=== PATIENT | male | born 1995 | race African-American/Black ===

== ENCOUNTER 2017-08-29 08:22 | Emergency (ER) | payer SELFPAY ==
[2017-08-29] MEDS ORDERED: KETOROLAC 30 MG/ML INJ ONE (08:57)
--- NOTE | 2017-08-29 09:10 | EKG ---
Test Date: 2017-08-29 Test Time: 08:51:33 Transportation Supervisor: MODE MEASUREMENT RESULTS: Intervals: Rate: 65 CO: 166 QRSD: 76 QT: 366 QTc: 380 [place]: P: 62 CO: 166 QRS: 54 T: 27 INTERPRETIVE STATEMENTS: Normal sinus rhythm with sinus arrhythmia Normal ECG No previous ECG available for comparison Electronically Signed On 08-29-17 09:10:10 CDT by Jerzy Franks
[2017-08-29 09:12] LABS: Absolute Lymphocytes (CBC) 2.4 K/uL (0.7-4.9); Absolute Monocytes 0.5 K/uL (0.1-1.3); Basophils % 0.6 % (0-1.3); Eosinophils % 3.2 % (0-4.4); Hematocrit 45.8 % (39.6-49.0); Lymphocytes % 29.4 % (15.3-44.8); MCH 30.5 pg (27.0-35.0); MCV 89.8 fL (80-100); MPV 9.3 fL (7.6-11.3); Monocytes % 5.8 % (3.3-12.3)
[2017-08-29 09:31] LABS: Bicarbonate 26 mEq/L (21-31); Glucose Level 98 mg/dL (65-120); Potassium 3.9 mEq/L (3.6-5.0); Sodium Level 138 mEq/L (135-145)
[2017-08-29 09:33] LABS: Alcohol Serum/Plasma < 10 mg/dl; BUN Blood Urea Nitrogen 16 mg/dL (6-20)
[2017-08-29 10:05] LABS: Urine Blood NEGATIVE (NEG); Urine Glucose NEGATIVE (NEG); Urine Protein NEGATIVE (NEG)
[2017-08-29 10:19] LABS: Barbiturates NEGATIVE (NEGATIVE); Benzodiazepines NEGATIVE (NEGATIVE); Cocaine NEGATIVE (NEGATIVE); METHAMPHETAM NEGATIVE (NEGATIVE); Opiates NEGATIVE (NEGATIVE); Phencyclidine NEGATIVE (NEGATIVE); THC Cannibis POSITIVE (NEGATIVE)
--- NOTE | 2017-08-29 10:22 | RAD REPORT ---
EXAM DESCRIPTION: RAD - Chest Single View - 08/29/2017 9:04 am CLINICAL HISTORY: Chest pain. COMPARISON: None. FINDINGS: Portable technique limits examination quality. The lungs are grossly clear. The heart is normal in size. No displaced fractures. IMPRESSION: No acute intrathoracic process suspected.
--- NOTE | 2017-08-29 10:28 | EDPHYS ---
Physician Documentation [facility] Name: Angel Davison Age: 22 yrs Sex: Male : 1995 Arrival Date: 08/29/2017 Time: 08:25 Bed 5 Private MD: None, None ED Physician Campbell Barker HPI: 08/29 09:23 This 22 yrs old Black Male presents to ER via Ambulatory with complaints of Chest Pain. kdr 09:23 The patient or guardian reports chest pain that is located primarily in the anterior kdr chest wall, right. The pain does not radiate. Associated signs and symptoms: The patient has no apparent associated signs or symptoms. The chest pain is described as aching, a pressure, sharp. Duration: The patient or guardian reports a single episode, that is still ongoing, but improving. Severity of pain: At its worst the pain was moderate in the emergency department the pain is unchanged. The patient has not experienced similar symptoms in the past. The patient has not recently seen a physician. Historical: - Allergies: 08:39 NKA; iw - Home Meds: 08:39 None [Active]; iw - PMHx: 08:39 None; iw - PSHx: 08:39 None; iw - Immunization history:: Adult Immunizations unknown. - Social history:: Smoking status: Patient/guardian denies using tobacco, Patient/guardian denies using alcohol. - Ebola Screening: : Patient negative for fever greater than or equal to 101.5 degrees Fahrenheit, and additional compatible Ebola Virus Disease symptoms Patient denies exposure to infectious person Patient denies travel to an Ebola-affected area in the 21 days before illness onset. ROS: 09:23 Constitutional: Negative for fever, chills, and weight loss, Eyes: Negative for injury, kdr pain, redness, and discharge, ENT: Negative for injury, pain, and discharge, Neck: Negative for injury, pain, and swelling, Respiratory: Negative for shortness of breath, cough, wheezing, and pleuritic chest pain, Abdomen/GI: Negative for abdominal pain, nausea, vomiting, diarrhea, and constipation, Back: Negative for injury and pain, : Negative for injury, bleeding, discharge, and swelling, MS/Extremity: Negative for injury and deformity, Skin: Negative for injury, rash, and discoloration, Neuro: Negative for headache, weakness, numbness, tingling, and seizure activity. Psych: Negative for depression, anxiety, suicide ideation, homicidal ideation, and hallucinations, Allergy/Immunology: Negative for hives, rash, and allergies, Endocrine: Negative for neck swelling, polydipsia, polyuria, polyphagia, and marked weight changes, Hematologic/Lymphatic: Negative for swollen nodes, abnormal bleeding, and unusual bruising. 09:23 Cardiovascular: Positive for chest pain, Negative for edema, orthopnea, palpitations, paroxysmal nocturnal dyspnea. Exam: 09:25 Constitutional: This is a well developed, well nourished patient who is awake, alert, kdr and in no acute distress. Head/Face: Normocephalic, atraumatic. Eyes: Pupils equal round and reactive to light, extra-ocular motions intact. Lids and lashes normal. Conjunctiva and sclera are non-icteric and not injected. Cornea within normal limits. Periorbital areas with no swelling, redness, or edema. Neck: Trachea midline, no thyromegaly or masses palpated, and no cervical lymphadenopathy. Supple, full range of motion without nuchal rigidity, or vertebral point tenderness. No Meningismus. Chest/axilla: Normal chest wall appearance and motion. Nontender with no deformity. No lesions are appreciated. Cardiovascular: Regular rate and rhythm with a normal S1 and S2. No gallops, murmurs, or rubs. Normal PMI, no JVD. No pulse deficits. Respiratory: Lungs have equal breath sounds bilaterally, clear to auscultation and percussion. No rales, rhonchi or wheezes noted. No increased work of breathing, no retractions or nasal flaring. Abdomen/GI: Soft, non-tender, with normal bowel sounds. No distension or tympany. No guarding or rebound. No evidence of tenderness throughout. Back: No spinal tenderness. No costovertebral tenderness. Full range of motion. Skin: Warm, dry with normal turgor. Normal color with no rashes, no lesions, and no evidence of cellulitis. MS/ Extremity: Pulses equal, no cyanosis. Neurovascular intact. Full, normal range of motion. Neuro: Awake and alert, GCS 15, oriented to person, place, time, and situation. Cranial nerves II-XII grossly intact. Motor strength 5/5 in all extremities. Sensory grossly intact. Cerebellar exam normal. Normal gait. Psych: Awake, alert, with orientation to person, place and time. Behavior, mood, and affect are within normal limits. Vital Signs: 08:34 BP 141 / 81; Pulse 73; Resp 18; Temp 98.1(TE); Pulse Ox 97% on R/A; Weight 72.57 kg; hj Height 5 ft. 2 in. (157.48 cm); Pain 7/10; 09:30 BP 142 / 80; Pulse 75; Resp 18; Pulse Ox 100% on R/A; hj 10:42 BP 119 / 78; Pulse 74; Resp 18; Pulse Ox 100% on R/A; hj 08:34 Body Mass Index 29.26 (72.57 kg, 157.48 cm) hj MDM: 09:25 HEART Score: History: Slightly Suspicious (0), ECG: Normal (0), Age: < or = 45 years kdr (0), Risk Factors: No Risk Factors Known (0), Troponin: < or = 1 x Normal Limit (0), Total Score =. DAVIDSON Risk Score: TOTAL SCORE = 1. Data reviewed: vital signs, nurses notes, EMS record. Counseling: I had a detailed discussion with the patient and/or guardian regarding: the historical points, exam findings, and any diagnostic results supporting the discharge/admit diagnosis, lab results, radiology results. Special discussion: Based on the patient's history, exam, and Dx evaluation, there is no indication for emergent intervention or inpatient Tx. It is understood by the patient/guardian that if the Sx's persist or worsen they need to return immediately for re-evaluation. 10:27 Patient medically screened. [facility] 08/29 08:51 Order name: CBC with Diff; Complete Time: 10:25 kdr 08/29 08:51 Order name: Chem 7; Complete Time: 10:25 kdr 08/29 08:51 Order name: CXR XRAY; Complete Time: 10:25 kdr 08/29 08:51 Order name: UDS kdr 08/29 08:51 Order name: ETOH Level; Complete Time: 10:25 kdr 08/29 09:25 Order name: Urine Dipstick--Ancillary (enter results); Complete Time: 10:25 bd 08/29 08:43 Order name: EKG; Complete Time: 08:43 Administered Medications: 08:54 Drug: TORadol 30 mg Route: IVP; Site: left antecubital; hj 08:57 Follow up: Response: No adverse reaction; Pain is decreased hj Disposition: 08/29/17 10:27 Discharged to Home. Impression: Chest pain, unspecified. - Condition is Stable. - Discharge Instructions: Chest Wall Pain, Nonspecific Chest Pain, [id number]. - Prescriptions for Ibuprofen 600 mg Oral Tablet - take 1 tablet by ORAL route every 6 hours As needed take with food; 15 tablet. Cyclobenzaprine 10 mg Oral Tablet - take 1 tablet by ORAL route every 8 hours As needed; 12 tablet. - Medication Reconciliation Form, Thank You Letter form. - Follow up: Private Physician; When: 2 - 3 days; Reason: If symptoms return, Further diagnostic work-up, Recheck today's complaints, Continuance of care, Re-evaluation by your physician. - Problem is new. - Symptoms have improved. Signatures: Dispatcher [employer] EDMS Campbell Barker MD MD [facility] Ashtyn Mcdermott RN RN Iraj Gonzalez RN RN Corrections: (The following items were deleted from the chart) 10:44 10:27 08/29/2017 10:27 Discharged to Home. Impression: Chest pain, unspecified. hj Condition is Stable. Forms are Medication Reconciliation Form, Thank You Letter, Antibiotic Education, Prescription Opioid Use. Follow up: Private Physician; When: 2 - 3 days; Reason: If symptoms return, Further diagnostic work-up, Recheck today's complaints, Continuance of care, Re-evaluation by your physician. Problem is new. Symptoms have improved. kdr
--- NOTE | 2017-08-29 10:28 | ER ---
Nurse's Notes [facility] Name: Angel Davison Age: 22 yrs Sex: Male : 1995 Arrival Date: 08/29/2017 Time: 08:25 Bed 5 Private MD: None, None Diagnosis: Chest pain, unspecified Presentation: 08/29 08:34 Presenting complaint: Patient states: woke up this morning with anterior chest wall iw pain, non radiating, denies injury, denies cough or SOB, /10. Transition of care: patient was not received from another setting of care. Onset of symptoms was August 29, 2017. 08:34 Method Of Arrival: Ambulatory iw 08:34 Acuity: AUDRA 3 iw 08:36 Risk Assessment: Do you want to hurt yourself or someone else? Patient reports no hj desire to harm self or others. Initial Sepsis Screen: Does the patient meet any 2 criteria? No. Patient's initial sepsis screen is negative. Does the patient have a suspected source of infection? No. Patient's initial sepsis screen is negative. Care prior to arrival: None. 08:37 Transition of care: patient was not received from another setting of care. hj Triage Assessment: 08:35 General: Appears in no apparent distress. uncomfortable, Behavior is calm, cooperative, hj appropriate for age. Pain: Complains of pain in chest. Cardiovascular: Capillary refill < 3 seconds Patient's skin is warm and dry. Historical: - Allergies: 08:39 NKA; iw - Home Meds: 08:39 None [Active]; iw - PMHx: 08:39 None; iw - PSHx: 08:39 None; iw - Immunization history:: Adult Immunizations unknown. - Social history:: Smoking status: Patient/guardian denies using tobacco, Patient/guardian denies using alcohol. - Ebola Screening: : Patient negative for fever greater than or equal to 101.5 degrees Fahrenheit, and additional compatible Ebola Virus Disease symptoms Patient denies exposure to infectious person Patient denies travel to an Ebola-affected area in the 21 days before illness onset. Screenin:35 Abuse screen: Denies threats or abuse. Denies injuries from another. Nutritional hj screening: No deficits noted. Tuberculosis screening: No symptoms or risk factors identified. Fall Risk None identified. Assessment: 08:34 Pain: Pain does not radiate. Pain began. hj 08:34 General: Appears in no apparent distress. uncomfortable, Behavior is calm, cooperative, hj appropriate for age. Neuro: Level of Consciousness is awake, alert, obeys commands, Oriented to person, place, time, situation, Appropriate for age. Cardiovascular: Capillary refill < 3 seconds Patient's skin is warm and dry. Cardiovascular: Heart tones S1 S2 present Pulses are all present. Rhythm is regular Chest pain is described as mild. Respiratory: Airway is patent Respiratory effort is even, unlabored, Respiratory pattern is regular, symmetrical. GI: No signs and/or symptoms were reported involving the gastrointestinal system. : No signs and/or symptoms were reported regarding the genitourinary system. EENT: No signs and/or symptoms were reported regarding the EENT system. Derm: No signs and/or symptoms reported regarding the dermatologic system. Musculoskeletal: No signs and/or symptoms reported regarding the musculoskeletal system. 09:11 Reassessment: Patient and/or family updated on plan of care and expected duration. Pain hj level reassessed. Patient is alert, oriented x 3, equal unlabored respirations, skin warm/dry/pink. awaiting results; medicated with pain meds with relief;. Vital Signs: 08:34 BP 141 / 81; Pulse 73; Resp 18; Temp 98.1(TE); Pulse Ox 97% on R/A; Weight 72.57 kg; hj Height 5 ft. 2 in. (157.48 cm); Pain 7/10; 09:30 BP 142 / 80; Pulse 75; Resp 18; Pulse Ox 100% on R/A; hj 10:42 BP 119 / 78; Pulse 74; Resp 18; Pulse Ox 100% on R/A; hj 08:34 Body Mass Index 29.26 (72.57 kg, 157.48 cm) ED Course: 08:25 Patient arrived in ED. mr 08:25 None, None is Private Physician. mr 08:30 Iraj Gonzalez, SIDNEY is Primary Nurse. hj 08:30 Campbell Barker MD is Attending Physician. kdr 08:35 Arm band placed on left wrist. hj 08:36 Patient has correct armband on for positive identification. Placed in gown. Bed in low hj position. Call light in reach. Side rails up X 1. [facility] shift lead on. 08:37 Patient maintains SpO2 saturation greater than 95% on room air. hj 08:38 Triage completed. iw 08:47 Missed attempt(s): 20 gauge in right antecubital area. Bleeding controlled, band aid ks6 applied, catheter tip intact. 08:48 Initial lab(s) drawn, by me, held in ED. Inserted saline lock: 20 gauge in left ks6 antecubital area, using aseptic technique. Blood collected. 09:01 X-ray completed. Portable x-ray completed in exam room. Patient tolerated procedure kp1 well. 09:03 CXR XRAY In Process Unspecified. EDMS 09:15 EKG done, by pharmacy technician trainee. reviewed by Campbell Barker MD. at1 09:25 Urine collected: clean catch specimen, clear. dh3 10:41 No provider procedures requiring assistance completed. IV discontinued, intact, hj bleeding controlled, No redness/swelling at site. Pressure dressing applied. Administered Medications: 08:54 Drug: TORadol 30 mg Route: IVP; Site: left antecubital; hj 08:57 Follow up: Response: No adverse reaction; Pain is decreased hj Outcome: 10:27 Discharge ordered by . kdr 10:41 Discharged to home ambulatory, with family. hj 10:41 Condition: stable 10:41 Discharge instructions given to patient, family, Instructed on discharge instructions, follow up and referral plans. medication usage, Demonstrated understanding of instructions, follow-up care, medications, Prescriptions given X 2. 10:44 Patient left the ED. hj Signatures: Dispatcher [employer] EDMS Campbell Barker MD MD kdr Rivera, Maria mr Williams, Irene, RN RN iw Cecilia sal, wall taper EKG Tat1 Iraj Gonzalez, Chloe Holloway RN kp1 Rosa Aguilar 3 Emmett Lou ks6
== END 2017-08-29 10:44 | disposition home or self-care (01) ==
LOC: ER 08:22
DX: R07.9 Chest pain, unspecified (principal)
CPT/HCPCS: 36415; 71045; 80048; 80307; 80320; 81003; 85025; 93005; 96374; 99285

== ENCOUNTER 2017-10-09 00:54 | Emergency (ER) | payer SELFPAY ==
[2017-10-09] MEDS ORDERED: NA CHLORIDE 0.9% 1,000 ML ONE ×2 (01:17→01:57)
--- NOTE | 2017-10-09 03:10 | ER ---
Nurse's Notes [facility] Name: Angel Davison Age: 22 yrs Sex: Male : 1995 Arrival Date: 10/09/2017 Time: 01:04 Bed 3 Private MD: Diagnosis: Alcohol abuse with intoxication;Cannabis abuse with intoxication Presentation: 10/09 01:05 Presenting complaint: EMS states: pt was found unresponsive in the [facility] and another resident called 911. Upon EMS arrival pt appeared intoxicated and became combative. Pt states he [place] the beach earlier and drank some liquor and smoked what he thought was marijuana but he then found out it was synthetic marijuana. Upon arrival to ED pt continually repeating, "Who gave me legal? I don't smoke legal.". Transition of care: patient was not received from another setting of care. Onset of symptoms was October 09, 2017. Risk Assessment: Do you want to hurt yourself or someone else? Patient reports no desire to harm self or others. Initial Sepsis Screen: Does the patient meet any 2 criteria? No. Patient's initial sepsis screen is negative. Does the patient have a suspected source of infection? No. Patient's initial sepsis screen is negative. Care prior to arrival: None. 01:05 Method Of Arrival: EMS: [facility] aa 01:05 Acuity: AUDRA 3 aa1 Historical: - Allergies: 01:27 NKA; aa1 - Home Meds: 01:27 None [Active]; aa1 - PMHx: 01:27 Asthma; Heart Murmur; aa1 - PSHx: 01:27 None; aa1 - Immunization history:: Adult Immunizations up to date. - Social history:: Smoking status: Patient uses tobacco products, smokes one-half pack cigarettes per day, Patient uses alcohol, street drugs, marijuana. - Ebola Screening: : No symptoms or risks identified at this time. Screenin:05 Abuse screen: Denies threats or abuse. Denies injuries from another. Nutritional aa1 screening: No deficits noted. Tuberculosis screening: No symptoms or risk factors identified. Fall Risk Mental Status- Overestimates/Forgets Limitations (15 pts.). Assessment: 01:05 General: Appears in no apparent distress. comfortable, Behavior is inappropriate for aa1 age, restless. General: Smells of alcohol. Pain: Denies pain. Neuro: Level of Consciousness is awake, confused, Oriented to person, time. Cardiovascular: Heart tones S1 S2 present Rhythm is regular. Respiratory: Airway is patent Respiratory effort is even, unlabored, Respiratory pattern is regular, symmetrical. GI: No signs and/or symptoms were reported involving the gastrointestinal system. : No signs and/or symptoms were reported regarding the genitourinary system. EENT: Sclera/Cornea are reddened in right eye and left eye. Derm: Skin is intact, is healthy with good turgor, Skin is pink, warm \\T\\ dry. Musculoskeletal: Circulation, motion, and sensation intact. Capillary refill < 3 seconds. 01:58 Reassessment: Patient appears in no apparent distress at this time. No changes from aa1 previously documented assessment. Patient and/or family updated on plan of care and expected duration. Pain level reassessed. Pt continues to repeat, "Who gave me legal? Someone gave me legal." Will continue to monitor for appropriateness for d/c. Father at bedside. 02:46 Reassessment: Patient appears in no apparent distress at this time. Patient and/or aa1 family updated on plan of care and expected duration. Pain level reassessed. Patient is alert, oriented x 3, equal unlabored respirations, skin warm/dry/pink. Pt much more alert and answering questions appropriately Patient denies pain at this time. Patient states feeling better. 03:04 Reassessment: Patient appears in no apparent distress at this time. Patient is alert, aa1 oriented x 3, equal unlabored respirations, skin warm/dry/pink. Discussed d/c \\T\\ f/u instructions with pt and parents; denies questions or concerns at this time. Vital Signs: 01:05 BP 102 / 63; Pulse 109; Resp 20; Temp 98.9; Pulse Ox 100% on R/A; Weight 74.84 kg; aa1 Height 5 ft. 2 in. (157.48 cm); Pain 0/10; 01:58 BP 114 / 81; Pulse 109; Resp 20; Pulse Ox 98% on R/A; Pain 0/10; aa1 02:46 BP 119 / 82; Pulse 107; Resp 18; Pulse Ox 98% on R/A; Pain 0/10; aa1 01:05 Body Mass Index 30.18 (74.84 kg, 157.48 cm) aa1 Madison Coma Score: 01:05 Eye Response: spontaneous(4). Verbal Response: confused(4). Motor Response: obeys aa1 commands(6). Total: 14. 01:58 Eye Response: spontaneous(4). Verbal Response: confused(4). Motor Response: obeys aa1 commands(6). Total: 14. 02:46 Eye Response: spontaneous(4). Verbal Response: oriented(5). Motor Response: obeys aa1 commands(6). Total: 15. ED Course: 01:04 Patient arrived in ED. lp1 01:05 Issac Almanza MD is Attending Physician. gs 01:05 Arm band placed on right wrist. Patient placed in an exam room, on a stretcher. aa1 01:05 Patient has correct armband on for positive identification. Bed in low position. Side aa1 rails up X2. Pulse ox on. NIBP on. 01:22 Inserted saline lock: 18 gauge in right antecubital area, using aseptic technique. lp1 01:26 Triage completed. aa1 01:37 Ana Vides, RN is Primary Nurse. aa1 03:04 No provider procedures requiring assistance completed. IV discontinued, intact, aa1 bleeding controlled, No redness/swelling at site. Pressure dressing applied. Administered Medications: 01:20 Drug: NS 0.9% 1000 ml Route: IV; Rate: 1 bolus; Site: right antecubital; aa1 02:02 Follow up: IV Status: Completed infusion aa1 02:02 Drug: NS 0.9% 1000 ml Route: IV; Rate: 1000 ml; Site: right antecubital; aa1 03:19 Follow up: IV Status: Completed infusion aa1 Outcome: 03:09 Discharge ordered by . gs 03:18 Discharged to home via wheelchair, with family. aa1 03:18 Condition: good 03:18 Discharge instructions given to patient, family, Instructed on discharge instructions, follow up and referral plans. Demonstrated understanding of instructions, follow-up care. 03:18 Patient left the ED. aa1 Signatures: Ana Vides RN RN aa1 Kenya Chung RN RN lp1 Issac Almanza MD MD Corrections: (The following items were deleted from the chart) 01:29 01:27 BP 102 / 63; Pulse 109bpm; Resp 20bpm; Pulse Ox 100% RA; Temp 98.9F; 74.84 kg; aa1 Height 5 ft. 2 in.; BMI: 30.1; Pain 0/10; aa1
--- NOTE | 2017-10-09 03:10 | EDPHYS ---
Physician Documentation [facility] Name: Angel Davison Age: 22 yrs Sex: Male : 1995 Arrival Date: 10/09/2017 Time: 01:04 Bed 3 Private MD: ED Physician Issac Almanza HPI: 10/09 03:03 This 22 yrs old Black Male presents to ER via EMS with complaints of Altered Mental gs Status. 03:03 The patient presents with confusion. Onset: The symptoms/episode began/occurred gs acutely, just prior to arrival. Possible causes: drug use, marijuana, narcotics, alcohol, has had a recent alcohol binge. Associated signs and symptoms: Pertinent negatives: abdominal pain, blurred vision, diaphoresis, lightheadedness. Current symptoms: In the emergency department the patient's symptoms have improved, mildly, is less confused, per ems. The patient has experienced similar episodes in the past, a few times. The patient has not recently seen a physician. Historical: - Allergies: : NKA; aa1 - Home Meds: : None [Active]; aa1 - PMHx: : Asthma; Heart Murmur; aa1 - PSHx: : None; aa1 - Immunization history:: Adult Immunizations up to date. - Social history:: Smoking status: Patient uses tobacco products, smokes one-half pack cigarettes per day, Patient uses alcohol, street drugs, marijuana. - Ebola Screening: : No symptoms or risks identified at this time. ROS: 03:03 All other systems are negative. gs Exam: 03:03 Head/Face: Normocephalic, atraumatic. Eyes: Pupils equal round and reactive to light, gs extra-ocular motions intact. Lids and lashes normal. Conjunctiva and sclera are non-icteric and not injected. Cornea within normal limits. Periorbital areas with no swelling, redness, or edema. ENT: Nares patent. No nasal discharge, no septal abnormalities noted. Tympanic membranes are normal and external auditory canals are clear. Oropharynx with no redness, swelling, or masses, exudates, or evidence of obstruction, uvula midline. Mucous membranes moist. Neck: Trachea midline, no thyromegaly or masses palpated, and no cervical lymphadenopathy. Supple, full range of motion without nuchal rigidity, or vertebral point tenderness. No Meningismus. Chest/axilla: Normal chest wall appearance and motion. Nontender with no deformity. No lesions are appreciated. Cardiovascular: Regular rate and rhythm with a normal S1 and S2. No gallops, murmurs, or rubs. Normal PMI, no JVD. No pulse deficits. Respiratory: Lungs have equal breath sounds bilaterally, clear to auscultation and percussion. No rales, rhonchi or wheezes noted. No increased work of breathing, no retractions or nasal flaring. Abdomen/GI: Soft, non-tender, with normal bowel sounds. No distension or tympany. No guarding or rebound. No evidence of tenderness throughout. Back: No spinal tenderness. No costovertebral tenderness. Full range of motion. Skin: Warm, dry with normal turgor. Normal color with no rashes, no lesions, and no evidence of cellulitis. MS/ Extremity: Pulses equal, no cyanosis. Neurovascular intact. Full, normal range of motion. 03:03 Constitutional: The patient appears alert, awake. 03:03 Neuro: Orientation: to person, place, Cranial nerves: CN II- XII are normal as tested, Cerebellar function: is grossly normal, Motor: moves all fours, strength is normal, Sensation: no obvious gross deficits. Vital Signs: 01:05 BP 102 / 63; Pulse 109; Resp 20; Temp 98.9; Pulse Ox 100% on R/A; Weight 74.84 kg; aa1 Height 5 ft. 2 in. (157.48 cm); Pain 0/10; 01:58 BP 114 / 81; Pulse 109; Resp 20; Pulse Ox 98% on R/A; Pain 0/10; aa1 02:46 BP 119 / 82; Pulse 107; Resp 18; Pulse Ox 98% on R/A; Pain 0/10; aa1 01:05 Body Mass Index 30.18 (74.84 kg, 157.48 cm) aa1 Amador Coma Score: 01:05 Eye Response: spontaneous(4). Verbal Response: confused(4). Motor Response: obeys aa1 commands(6). Total: 14. 01:58 Eye Response: spontaneous(4). Verbal Response: confused(4). Motor Response: obeys aa1 commands(6). Total: 14. 02:46 Eye Response: spontaneous(4). Verbal Response: oriented(5). Motor Response: obeys aa1 commands(6). Total: 15. MDM: 01:05 Patient medically screened. gs 03:03 Differential Diagnosis: alcohol intoxication, overdose, volume depletion. Data gs reviewed: vital signs, nurses notes. Response to treatment: the patient's symptoms have markedly improved after treatment, and as a result, I will discharge patient. 03:09 ED course: pt has etoh on breath and admits to drinking and smoking pot. gs Administered Medications: 01:20 Drug: NS 0.9% 1000 ml Route: IV; Rate: 1 bolus; Site: right antecubital; aa1 02:02 Follow up: IV Status: Completed infusion aa1 02:02 Drug: NS 0.9% 1000 ml Route: IV; Rate: 1000 ml; Site: right antecubital; aa1 03:19 Follow up: IV Status: Completed infusion aa1 Disposition: 10/09/17 03:09 Discharged to Home. Impression: Alcohol abuse with intoxication, Cannabis abuse with intoxication. - Condition is Stable. - Discharge Instructions: Alcohol Intoxication. - Medication Reconciliation Form, Thank You Letter, Antibiotic Education, Prescription Opioid Use form. - Follow up: Private Physician; When: 2 - 3 days; Reason: Re-evaluation by your physician. Signatures: Ana Vides RN RN aa1 Issac Almanza MD MD Corrections: (The following items were deleted from the chart) 03:18 03:09 10/09/2017 03:09 Discharged to Home. Impression: Alcohol abuse with intoxication; aa1 Cannabis abuse with intoxication. Condition is Stable. Forms are Medication Reconciliation Form, Thank You Letter, Antibiotic Education, Prescription Opioid Use. Follow up: Private Physician; When: 2 - 3 days; Reason: Re-evaluation by your physician. gs
== END 2017-10-09 03:18 | disposition home or self-care (01) ==
LOC: ER 00:54
DX: F10.120 Alcohol abuse with intoxication, uncomplicated (principal); F12.120 Cannabis abuse with intoxication, uncomplicated; J45.909 Unspecified asthma, uncomplicated; F17.210 Nicotine dependence, cigarettes, uncomplicated
CPT/HCPCS: 96360; 96361; 99284; J7030